=== PATIENT | male | born 1950 | race Caucasian/White ===

== ENCOUNTER 2018-01-18 09:07 | Emergency (ER) | payer MEDICARE ==
[2018-01-18 09:49] LABS: Hemoglobin 14.6 g/dL (14.0-18.0); Mean Corpuscular HGB CONC 34.4 g/dL (32.0-36.0); Mean Corpuscular Hemoglobin 31.8 pg (27.0-31.0); Mean Corpuscular Volume 92.5 fL (78.0-98.0); Mean Platelet Volume 7.4 fL (7.4-10.4); Platelet Count 106 thou/uL (130-400); RBC Distribution Width 11.3 % (11.5-14.5); Red Blood Cell (RBC) Count 4.58 mill/uL (4.70-6.10); White Blood Cell (WBC) Count 7.9 thou/uL (4.8-10.8)
[2018-01-18 09:56] LABS: Anion Gap 15 mmol/L (10-20); BUN (Urea Nitrogen) 19 mg/dL (8.4-25.7); Calc. Creatinine Clearance 0 mL/min (70-130); Calcium 9.6 mg/dL (7.8-10.44); Carbon Dioxide 27 mmol/L (23-31); Chloride 93 mmol/L (98-107); Estimated GFR-MDRD 46; Glucose 541 mg/dL (80-115); Potassium 4.5 mmol/L (3.5-5.1); Sodium 130 mmol/L (136-145)
[2018-01-18 10:00] LABS: #Eosinphils 0.1 thou/uL (0.0-0.7); #Lymphocytes 0.9 thou/uL (1.20-3.40); #Monocytes 0.7 thou/uL (0.11-0.59); #Neutrophils 6.2 thou/uL (1.40-6.50); %Basophils 0.6 % (0.0-1.0); %Eosinophils 1.4 % (0.0-10.0); %Monocytes 8.6 % (0.0-10.0); %Neutrophils 78.3 % (42.0-75.0); PLT Morphology Comment Appears Decreased; RBC Morphology Normal
[2018-01-18 10:03] LABS: MDiff Complete? YES
[2018-01-18] MEDS ORDERED: Insulin Regular 300 UNITS/3 ML VIAL ONE (10:09)
[2018-01-18] MEDS ORDERED: Lidocaine 1% 20 ML MDV ONE (10:31)
[2018-01-18] MEDS ORDERED: Clindamycin 300 MG/2 ML VIAL ONE (10:44)
--- NOTE | 2018-01-18 11:45 | ULT ---
RIGHT LOWER EXTREMITY VENOUS ULTRASOUND: HISTORY: Right calf redness and pain for 1 week. Palpable abnormality in the inguinal region. TECHNIQUE: Multiplanar, butler scale, and color Doppler images were obtained in a right lower extremity venous ult rasound. Spectral analysis of the Doppler waveforms was performed. FINDINGS: The right common femoral vein, profunda femoral vein, superficial femoral vein, and popliteal vein ar e normal in appearance without visible thrombus. These vessels demonstrate normal compression, flow, and augmentation. The posterior tibial vein and greater saphenous vein are also patent without evid ence of thrombus. There is a prominent right inguinal lymph node. At the area of concern along the calf, there is a sm all fluid collection measuring approximately 2.3 cm in size. IMPRESSION: 1. No evidence of deep vein thrombosis. 2. Small fluid collection in the calf region. POS: [facility]
== END 2018-01-18 11:06 | disposition home or self-care (01) ==
LOC: SCSER 09:07
DX: L02.415 Cutaneous abscess of right lower limb (principal); L03.115 Cellulitis of right lower limb; I25.10 Atherosclerotic heart disease of native coronary artery without angina pectoris; I25.2 Old myocardial infarction; E11.9 Type 2 diabetes mellitus without complications; E78.5 Hyperlipidemia, unspecified; I10 Essential (primary) hypertension; Z87.891 Personal history of nicotine dependence; Z79.4 Long term (current) use of insulin
CPT/HCPCS: 10060; 36415; 80048; 85025; 87070; 87077; 87186; 87205; 96372; J1815; J2001; J3490

== ENCOUNTER 2018-01-20 06:39 | Emergency (ER) | payer MEDICARE | END 2018-01-20 07:31 | disposition home or self-care (01) | LOC: SCSER 06:39 | DX: Z48.817 Encounter for surgical aftercare following surgery on the skin and subcutaneous tissue (principal); I25.2 Old myocardial infarction; I25.10 Atherosclerotic heart disease of native coronary artery without angina pectoris; E78.5 Hyperlipidemia, unspecified; I10 Essential (primary) hypertension; Z87.891 Personal history of nicotine dependence | CPT/HCPCS: 99282 ==

== ENCOUNTER 2018-07-12 01:32 | Emergency (ER) | payer MEDICARE | END 2018-07-12 02:45 | disposition home or self-care (01) | LOC: SCSER 01:32 | DX: L02.415 Cutaneous abscess of right lower limb (principal); L03.115 Cellulitis of right lower limb; I25.2 Old myocardial infarction; E11.9 Type 2 diabetes mellitus without complications; E78.5 Hyperlipidemia, unspecified; I10 Essential (primary) hypertension; Z87.891 Personal history of nicotine dependence; Z79.4 Long term (current) use of insulin; Z79.82 Long term (current) use of aspirin; Z79.899 Other long term (current) drug therapy | CPT/HCPCS: 10061 ==

== ENCOUNTER 2025-04-11 23:44 | Inpatient (IN) | payer MEDICARE, OTHER ==
[2025-04-12 00:25] LABS: ALT (SGPT) Less than 7 U/L (Less than 45); AST (SGOT) 16 U/L (11-34); Albumin 1.9 g/dL (3.1-4.5); Alkaline Phosphatase 55 U/L (40-110); Anion Gap 16 mmol/L (10-20); BUN (Urea Nitrogen) 36 mg/dL (8.4-25.7); Bilirubin, Total 1.6 mg/dL (0.3-1.2); Calc. Creatinine Clearance 0 mL/min (70-130); Calcium 8.7 mg/dL (7.8-10.44); Carbon Dioxide 20 mmol/L (23-31); Chloride 102 mmol/L (98-107); Globulin 2.9 g/dL (2.4-3.5); Glucose 126 mg/dL (83-110); Potassium 3.7 mmol/L (3.5-5.1); Sodium 134 mmol/L (136-145)
[2025-04-12 00:52] LABS: Hematocrit 21.3 % (42.0-52.0); Hemoglobin 7.1 g/dL (14.0-18.0); Mean Corpuscular Hemoglobin 31.6 pg (27.0-31.0); Mean Corpuscular Volume 94.7 fL (78.0-98.0); Platelet Count 25 10x3/uL (130-400); Red Blood Cell (RBC) Count 2.25 mill/uL (4.70-6.10); White Blood Cell (WBC) Count 0.89 10x3/uL (4.8-10.8)
[2025-04-12] MEDS ORDERED: Hydrocortisone Sod Succ/PF 100 mg/2 ml Vial ONE (00:55)
[2025-04-12 01:37] LABS: Bacteria/HPF 4+ HPF (None Seen); CAUTI Indications for Culture Alt mental st,lethar; Glucose, Urine (Dipstick) Greater than 1000 mg/dL (Negative); Leukocyte 500 Leu/uL (Negative); Protein, Urine (Dipstick) 50 mg/dL (Neg-Trace); RBC/HPF 21-50 HPF (0-3); Specific Gravity, Urine 1.017 (1.002-1.036); WBC/HPF Greater than 50 HPF (0-3)
[2025-04-12] MEDS ORDERED: NOREPINEPHRINE 8 MG/250 ML-D5W 250 ML IVPB PRN (01:38)
[2025-04-12] MEDS ORDERED: Acetaminophen 325 MG (10.15 ML) UDCUP PO PRN (01:38)
[2025-04-12 01:52] LABS: Urine Culture Reflex Yes Yes
[2025-04-12] MEDS ORDERED: Vasopressin In 0.9 % NaCl 40 UNIT in Premix 1 BAG IV SCH (02:00)
[2025-04-12 02:17] LABS: Anisocytosis SLIGHT = 6-15 cells HPF (0-5); Macrocytosis SLIGHT = 6-15 cells HPF (0-5); Nucleated RBC (Manual Ct) 8 % (0); Platelet Adequacy Comment Significant Decrease; Polychromasia SLIGHT = 2-3 cells HPF (0-2); Smudge Cells 8.7 %
[2025-04-12] MEDS ORDERED: Ondansetron PF 4 MG/2 ML Vial IVP PRN (02:47)
[2025-04-12] MEDS ORDERED: Calcium Carbonate 500 MG ChewTAB PO PRN (02:47)
[2025-04-12] MEDS ORDERED: Electrolyte Replacement Protocol 1 EACH FS SCH (03:00)
[2025-04-12] MEDS ORDERED: PHOS-NAK 1 PKT PACK PO PRN (03:15)
[2025-04-12] MEDS ORDERED: Glucagon 1 MG/ML KIT IM PRN (03:39)
[2025-04-12] MEDS ORDERED: Dextrose 50% Abboject 50 ML SYRINGE SLOW IVP PRN (03:39)
[2025-04-12] MEDS: Hydrocortisone Sod Succ/PF 100 mg/2 ml Vial IVP SCH (05:41)
[2025-04-12] MEDS: Vancomycin (BATCH) 2.5 GM in Premix 1 BAG IVPB SCH (06:19)
[2025-04-12] MEDS: Norepinephrine 8 MG/0.9% NS 250 ML IVPB SCH (06:49)
[2025-04-12 07:21] LABS: ALT (SGPT) 8 U/L (Less than 45); AST (SGOT) 15 U/L (11-34); Albumin 2.1 g/dL (3.1-4.5); Alkaline Phosphatase 62 U/L (40-110); Anion Gap 22 mmol/L (10-20); BUN (Urea Nitrogen) 36 mg/dL (8.4-25.7); Bilirubin, Total 1.7 mg/dL (0.3-1.2); Calc. Creatinine Clearance 63 mL/min (70-130); Calcium 8.8 mg/dL (7.8-10.44); Carbon Dioxide 13 mmol/L (23-31); Chloride 103 mmol/L (98-107); Globulin 3.2 g/dL (2.4-3.5); Glucose 201 mg/dL (83-110); Potassium 4.1 mmol/L (3.5-5.1); Sodium 134 mmol/L (136-145)
[2025-04-12 07:33] LABS: Hematocrit 21.8 % (42.0-52.0); Hemoglobin 6.9 g/dL (14.0-18.0); Mean Corpuscular Hemoglobin 31.7 pg (27.0-31.0); Mean Corpuscular Volume 100.0 fL (78.0-98.0); Platelet Count 24 10x3/uL (130-400); Red Blood Cell (RBC) Count 2.18 mill/uL (4.70-6.10); White Blood Cell (WBC) Count 0.61 10x3/uL (4.8-10.8)
[2025-04-12 08:49] LABS: Burr Cells MODERATE= 6-15 cells HPF (0-1); Macrocytosis SLIGHT = 6-15 cells HPF (0-5); Ovalocytes SLIGHT = 2-5 cells HPF (0-1); Platelet Adequacy Comment Significant Decrease; Poikilocytosis SLIGHT = 6-15 cells HPF (0-5); Polychromasia SLIGHT = 2-3 cells HPF (0-2)
[2025-04-12] MEDS ORDERED: Vancomycin 1 GM in Premix 1 BAG IVPB SCH (09:00)
[2025-04-12] MEDS: Carvedilol 3.125 MG TAB PO SCH (09:11)
[2025-04-12] MEDS: Pantoprazole 40 MG DR.TAB PO SCH (09:27)
[2025-04-12] MEDS: Folic Acid 1 MG TAB PO SCH (09:27)
[2025-04-12] MEDS: Benzonatate 100 MG CAP PO SCH (09:27)
[2025-04-12] MEDS: TICAGRELOR 90 MG TABLET PO SCH (09:27)
[2025-04-12] MEDS: Mupirocin 1 GM TUBE NASAL DECOLONIZATION NASAL SCH (09:28)
[2025-04-12 10:48] LABS: Platelet Count 22 10x3/uL (130-400)
[2025-04-12 10:49] LABS: Fibrinogen 837 mg/dL (253-463)
[2025-04-12 10:50] LABS: INR-International Normal Ratio 2.2; Prothrombin Time 24.9 sec (12.0-14.7)
[2025-04-12 10:51] LABS: D-Dimer Test 0.60 mcg/mL (0.27-0.43); PTT 58.6 sec (22.9-36.1)
[2025-04-12] MEDS: Furosemide 20 MG (2 mL) VIAL IVP SCH (11:02)
[2025-04-12 20:04] LABS: Influenza A by NAA Not Detected (NotDetected); Influenza B by NAA Not Detected (NotDetected); SARS-CoV-2 NAA Rapid Test Not Detected (NotDetected)
[2025-04-12] MEDS: Aspirin 81 mg Enteric Coated Tablet PO SCH (21:07)
[2025-04-12] MEDS: Sodium Bicarbonate Tab 325 MG TAB PO SCH (21:08)
[2025-04-12] MEDS: Rosuvastatin 20 MG TAB PO SCH (21:08)
[2025-04-12] MEDS: Vancomycin 1.25 GM / NS 250 ML VIAL-2-BAG IVPB SCH (22:27)
[2025-04-12] MEDS ORDERED: Vancomycin 1.25 GM / NS 250 ML VIAL-2-BAG IVPB SCH (23:00)
[2025-04-13 05:03] LABS: Vancomycin, Random 23.9 ug/mL (See Comment)
[2025-04-13 05:05] LABS: Anion Gap 25 mmol/L (10-20); BUN (Urea Nitrogen) 47 mg/dL (8.4-25.7); Calc. Creatinine Clearance 55 mL/min (70-130); Calcium 8.3 mg/dL (7.8-10.44); Carbon Dioxide 14 mmol/L (23-31); Chloride 102 mmol/L (98-107); Glucose 275 mg/dL (83-110); Iron 61 ug/dL (65-175); Iron Binding Capacity, Total 93 mcg/dL (261-462); Potassium 4.3 mmol/L (3.5-5.1); Sodium 137 mmol/L (136-145)
[2025-04-13 05:07] LABS: Hematocrit 24.4 % (42.0-52.0); Hemoglobin 7.8 g/dL (14.0-18.0); Mean Corpuscular Hemoglobin 31.2 pg (27.0-31.0); Mean Corpuscular Volume 97.6 fL (78.0-98.0); Platelet Count 43 10x3/uL (130-400); Red Blood Cell (RBC) Count 2.50 mill/uL (4.70-6.10); White Blood Cell (WBC) Count 2.50 10x3/uL (4.8-10.8)
[2025-04-13 05:34] LABS: Burr Cells SLIGHT = 2-5 cells HPF (0-1); Nucleated RBC (Manual Ct) 7 % (0); Platelet Adequacy Comment Platelets Decreased; Poikilocytosis MODERATE=16-30 cells HPF (0-5); Polychromasia SLIGHT = 2-3 cells HPF (0-2); Smudge Cells 6.5 %; Toxic Granulation SLIGHT
[2025-04-13] MEDS ORDERED: Glucagon 1 MG/ML KIT IM PRN (11:31)
[2025-04-13] MEDS: Albumin 5% 12.5 GM (250 mL) BOT IVPB SCH (11:50)
[2025-04-13] MEDS: Vancomycin 1 GM in Premix 1 BAG IVPB SCH (22:02)
[2025-04-14 04:54] LABS: Hematocrit 25.4 % (42.0-52.0); Hemoglobin 8.4 g/dL (14.0-18.0); Mean Corpuscular Hemoglobin 31.6 pg (27.0-31.0); Mean Corpuscular Volume 95.5 fL (78.0-98.0); Platelet Count 79 10x3/uL (130-400); Red Blood Cell (RBC) Count 2.66 mill/uL (4.70-6.10); White Blood Cell (WBC) Count 7.13 10x3/uL (4.8-10.8)
[2025-04-14 05:42] LABS: Anion Gap 21 mmol/L (10-20); BUN (Urea Nitrogen) 53 mg/dL (8.4-25.7); Calc. Creatinine Clearance 50 mL/min (70-130); Calcium 8.2 mg/dL (7.8-10.44); Carbon Dioxide 18 mmol/L (23-31); Chloride 102 mmol/L (98-107); Glucose 295 mg/dL (83-110); Potassium 4.3 mmol/L (3.5-5.1); Sodium 137 mmol/L (136-145)
[2025-04-14 06:03] LABS: Anisocytosis MODERATE=16-30 cells HPF (0-5); Burr Cells SLIGHT = 2-5 cells HPF (0-1); Macrocytosis SLIGHT = 6-15 cells HPF (0-5); Nucleated RBC (Manual Ct) 4 % (0); Platelet Adequacy Comment Platelets Decreased; Poikilocytosis MODERATE=16-30 cells HPF (0-5); Polychromasia SLIGHT = 2-3 cells HPF (0-2); Smudge Cells 6.0 %
[2025-04-14] MEDS: Furosemide 40 MG (4 mL) VIAL SLOW IVP SCH (20:47)
[2025-04-14] MEDS: Melatonin 3 MG TAB PO SCH (21:53)
[2025-04-15 06:17] LABS: Hematocrit 30.9 % (42.0-52.0); Hemoglobin 9.8 g/dL (14.0-18.0); Mean Corpuscular Hemoglobin 30.5 pg (27.0-31.0); Mean Corpuscular Volume 96.3 fL (78.0-98.0); Platelet Count 120 10x3/uL (130-400); Red Blood Cell (RBC) Count 3.21 mill/uL (4.70-6.10); White Blood Cell (WBC) Count 11.42 10x3/uL (4.8-10.8)
[2025-04-15 06:47] LABS: Anion Gap 24 mmol/L (10-20); BUN (Urea Nitrogen) 51 mg/dL (8.4-25.7); Calc. Creatinine Clearance 52 mL/min (70-130); Calcium 7.9 mg/dL (7.8-10.44); Carbon Dioxide 16 mmol/L (23-31); Chloride 104 mmol/L (98-107); Glucose 322 mg/dL (83-110); Potassium 4.0 mmol/L (3.5-5.1); Sodium 140 mmol/L (136-145)
[2025-04-15 06:49] LABS: Burr Cells SLIGHT = 2-5 cells HPF (0-1); Platelet Adequacy Comment Platelets Decreased; Polychromasia SLIGHT = 2-3 cells HPF (0-2); Smudge Cells 3.8 %; Toxic Granulation SLIGHT
[2025-04-15] MEDS ORDERED: Heparin 10,000 UNITS/ 10 ML VIAL ONE (06:53)
[2025-04-15] MEDS ORDERED: Lidocaine 1% PF 5 ML VIAL ONE (07:09)
[2025-04-15] MEDS ORDERED: Ondansetron PF 4 MG/2 ML Vial ONE (07:09)
[2025-04-15] MEDS ORDERED: fentaNYL PF 100 MCG/2 ML SYRINGE ONE (07:09)
[2025-04-15] MEDS ORDERED: PHENYLEPHRINE-NS 100 MCG/ML 10 ML SYRINGE ONE ×3 (07:47→08:12)
[2025-04-15] MEDS ORDERED: PROPOFOL 200 MG/20 ML VIAL ONE (07:50)
[2025-04-15] MEDS: QUEtiapine 25 MG TAB PO SCH (19:57)
[2025-04-15 22:55] LABS: Anion Gap 16 mmol/L (10-20); BUN (Urea Nitrogen) 50 mg/dL (8.4-25.7); Calc. Creatinine Clearance 52 mL/min (70-130); Calcium 7.7 mg/dL (7.8-10.44); Carbon Dioxide 23 mmol/L (23-31); Chloride 106 mmol/L (98-107); Glucose 312 mg/dL (83-110); Magnesium 1.9 mg/dL (1.6-2.6); Potassium 3.8 mmol/L (3.5-5.1); Sodium 141 mmol/L (136-145)
[2025-04-15] MEDS: Magnesium 2 GM/50 ML(in water) 2 GM in Premix 1 BAG IVPB PRN (23:16)
[2025-04-16 04:14] LABS: Anion Gap 19 mmol/L (10-20); BUN (Urea Nitrogen) 48 mg/dL (8.4-25.7); Calc. Creatinine Clearance 51 mL/min (70-130); Calcium 7.8 mg/dL (7.8-10.44); Carbon Dioxide 22 mmol/L (23-31); Chloride 107 mmol/L (98-107); Glucose 302 mg/dL (83-110); Potassium 3.6 mmol/L (3.5-5.1); Sodium 144 mmol/L (136-145)
[2025-04-16 04:15] LABS: CRP, High Sensitivity at Bryan 11.28 mg/dL (< or = 0.5); Magnesium 2.2 mg/dL (1.6-2.6)
[2025-04-16 04:31] LABS: Hematocrit 29.0 % (42.0-52.0); Hemoglobin 9.1 g/dL (14.0-18.0); Mean Corpuscular Hemoglobin 30.1 pg (27.0-31.0); Mean Corpuscular Volume 96.0 fL (78.0-98.0); Platelet Count 127 10x3/uL (130-400); Red Blood Cell (RBC) Count 3.02 mill/uL (4.70-6.10); White Blood Cell (WBC) Count 12.93 10x3/uL (4.8-10.8)
[2025-04-16 06:12] LABS: Anisocytosis SLIGHT = 6-15 cells HPF (0-5); Macrocytosis SLIGHT = 6-15 cells HPF (0-5); Nucleated RBC (Manual Ct) 1 % (0); Platelet Adequacy Comment Platelets Decreased; Poikilocytosis MODERATE=16-30 cells HPF (0-5); Polychromasia SLIGHT = 2-3 cells HPF (0-2); Smudge Cells 3.6 %; Toxic Granulation SLIGHT
[2025-04-16] MEDS: Metoprolol Tartrate 5 MG (5 mL) VIAL IVP SCH (13:34)
[2025-04-16] MEDS: Hydrocortisone Sod Succ/PF 100 mg/2 ml Vial IVP SCH (14:53)
[2025-04-16] MEDS ORDERED: Digoxin 0.5 MG/2 ML AMP SLOW IVP SCH (19:45)
[2025-04-16] MEDS: Melatonin 3 MG TAB PO PRN (21:12)
[2025-04-16] MEDS: Digoxin 0.5 MG/2 ML AMP SLOW IVP SCH (23:53)
[2025-04-17] MEDS ORDERED: Norepinephrine 8 MG/0.9% NS 250 ML IVPB SCH (01:15)
[2025-04-17 01:46] LABS: Anion Gap 15 mmol/L (10-20); BUN (Urea Nitrogen) 53 mg/dL (8.4-25.7); Calc. Creatinine Clearance 54 mL/min (70-130); Calcium 7.8 mg/dL (7.8-10.44); Carbon Dioxide 24 mmol/L (23-31); Chloride 109 mmol/L (98-107); Glucose 248 mg/dL (83-110); Magnesium 2.1 mg/dL (1.6-2.6); Potassium 3.1 mmol/L (3.5-5.1); Sodium 145 mmol/L (136-145)
[2025-04-17 04:57] LABS: Hematocrit 27.9 % (42.0-52.0); Hemoglobin 8.8 g/dL (14.0-18.0); Mean Corpuscular Hemoglobin 30.6 pg (27.0-31.0); Mean Corpuscular Volume 96.9 fL (78.0-98.0); Platelet Count 132 10x3/uL (130-400); Red Blood Cell (RBC) Count 2.88 mill/uL (4.70-6.10); White Blood Cell (WBC) Count 12.26 10x3/uL (4.8-10.8)
[2025-04-17 05:25] LABS: Anion Gap 13 mmol/L (10-20); BUN (Urea Nitrogen) 51 mg/dL (8.4-25.7); Calc. Creatinine Clearance 56 mL/min (70-130); Calcium 7.7 mg/dL (7.8-10.44); Carbon Dioxide 26 mmol/L (23-31); Chloride 110 mmol/L (98-107); Glucose 252 mg/dL (83-110); Potassium 3.1 mmol/L (3.5-5.1); Sodium 146 mmol/L (136-145)
[2025-04-17 05:34] LABS: Platelet Adequacy Comment Platelets Normal; Polychromasia SLIGHT = 2-3 cells HPF (0-2); Smudge Cells 1.0 %
[2025-04-17] MEDS: Potassium Chloride 20 MEQ in Premix 1 BAG IVPB PRN (06:04)
[2025-04-17 06:47] VITALS: BMI 39.6
[2025-04-17] MEDS: Enoxaparin 40 MG (0.4 mL) SYRINGE SC SCH (09:24)
[2025-04-17] MEDS: Metoprolol Succinate XL 25 MG ER.TAB PO SCH (09:25)
[2025-04-17] MEDS: Metoprolol Tartrate 5 MG (5 mL) VIAL IVP SCH (11:54)
[2025-04-17] MEDS: Acetaminophen 325 MG TAB PO PRN (11:55)
[2025-04-17] MEDS: Apixaban 5 MG TAB PO SCH ×2 (11:55→20:52)
[2025-04-17] MEDS: Hydrocortisone Sod Succ/PF 100 mg/2 ml Vial IVP SCH (12:07)
[2025-04-17 16:05] LABS: Potassium 3.4 mmol/L (3.5-5.1)
[2025-04-18 09:24] LABS: Anion Gap 18 mmol/L (10-20); BUN (Urea Nitrogen) 50 mg/dL (8.4-25.7); CRP, High Sensitivity at Bryan 5.27 mg/dL (< or = 0.5); Calc. Creatinine Clearance 57 mL/min (70-130); Calcium 7.9 mg/dL (7.8-10.44); Carbon Dioxide 20 mmol/L (23-31); Chloride 104 mmol/L (98-107); Glucose 253 mg/dL (83-110); Hematocrit 29.8 % (42.0-52.0); Hemoglobin 9.4 g/dL (14.0-18.0); Magnesium 1.9 mg/dL (1.6-2.6); Mean Corpuscular Hemoglobin 30.5 pg (27.0-31.0); Mean Corpuscular Volume 96.8 fL (78.0-98.0); Platelet Count 137 10x3/uL (130-400); Potassium 3.7 mmol/L (3.5-5.1); Red Blood Cell (RBC) Count 3.08 mill/uL (4.70-6.10); Sodium 138 mmol/L (136-145); White Blood Cell (WBC) Count 14.96 10x3/uL (4.8-10.8)
[2025-04-18 09:45] LABS: Anisocytosis SLIGHT = 6-15 cells HPF (0-5); Macrocytosis SLIGHT = 6-15 cells HPF (0-5); Nucleated RBC (Manual Ct) 1 % (0); Platelet Adequacy Comment Platelets Normal; Poikilocytosis MODERATE=16-30 cells HPF (0-5); Polychromasia SLIGHT = 2-3 cells HPF (0-2); Smudge Cells 5.8 %
[2025-04-18] MEDS ORDERED: PHOS-NAK 1 PKT PACK PO PRN (16:00)
[2025-04-18] MEDS ORDERED: Potassium Chloride 20 MEQ in Premix 1 BAG IVPB PRN (16:00)
[2025-04-19 03:14] LABS: Hematocrit 29.7 % (42.0-52.0); Hemoglobin 9.4 g/dL (14.0-18.0); Mean Corpuscular Hemoglobin 30.2 pg (27.0-31.0); Mean Corpuscular Volume 95.5 fL (78.0-98.0); Platelet Count 179 10x3/uL (130-400); Red Blood Cell (RBC) Count 3.11 mill/uL (4.70-6.10); White Blood Cell (WBC) Count 15.30 10x3/uL (4.8-10.8)
[2025-04-19 03:41] LABS: Anisocytosis SLIGHT = 6-15 cells HPF (0-5); Nucleated RBC (Manual Ct) 1 % (0); Platelet Adequacy Comment Platelets Normal; Polychromasia SLIGHT = 2-3 cells HPF (0-2)
[2025-04-19 04:18] LABS: Anion Gap 19 mmol/L (10-20); BUN (Urea Nitrogen) 49 mg/dL (8.4-25.7); Calc. Creatinine Clearance 57 mL/min (70-130); Calcium 8.0 mg/dL (7.8-10.44); Carbon Dioxide 20 mmol/L (23-31); Chloride 101 mmol/L (98-107); Glucose 219 mg/dL (83-110); Potassium 3.5 mmol/L (3.5-5.1); Sodium 136 mmol/L (136-145)
[2025-04-19 06:02] LABS: Magnesium 1.8 mg/dL (1.6-2.6)
[2025-04-19] MEDS: Amiodarone 150 MG, Admixture Fee 1 EACH in Dextrose 5% in Water 100 ML IVPB SCH (09:17)
[2025-04-19] MEDS: Magnesium 2 GM/50 ML(in water) 2 GM in Premix 1 BAG IVPB SCH (09:28)
[2025-04-20 05:43] LABS: Hematocrit 26.2 % (42.0-52.0); Hemoglobin 8.1 g/dL (14.0-18.0); Mean Corpuscular Hemoglobin 30.3 pg (27.0-31.0); Mean Corpuscular Volume 98.1 fL (78.0-98.0); Platelet Count 124 10x3/uL (130-400); Red Blood Cell (RBC) Count 2.67 mill/uL (4.70-6.10); White Blood Cell (WBC) Count 12.77 10x3/uL (4.8-10.8)
[2025-04-20 05:52] LABS: Anion Gap 15 mmol/L (10-20); BUN (Urea Nitrogen) 39 mg/dL (8.4-25.7); Calc. Creatinine Clearance 76 mL/min (70-130); Calcium 7.8 mg/dL (7.8-10.44); Carbon Dioxide 21 mmol/L (23-31); Chloride 105 mmol/L (98-107); Glucose 246 mg/dL (83-110); Magnesium 2.1 mg/dL (1.6-2.6); Potassium 3.5 mmol/L (3.5-5.1); Sodium 137 mmol/L (136-145)
[2025-04-20 06:14] LABS: Nucleated RBC (Manual Ct) 1 % (0); Platelet Adequacy Comment Platelets Decreased; Smudge Cells 4.9 %
[2025-04-20] MEDS: Insulin Glargine 30 UNITS/0.3 ML VIAL SC SCH ×2 (09:27→23:44)
[2025-04-20] MEDS: Hydrocortisone Sod Succ/PF 100 mg/2 ml Vial IVP SCH (09:37)
[2025-04-20] MEDS: Amiodarone 200 MG TAB PO SCH (22:35)
[2025-04-20] MEDS: Metoprolol Tartrate 5 MG (5 mL) VIAL IVP SCH (22:43)
[2025-04-21 08:10] LABS: Anion Gap 14 mmol/L (10-20); BUN (Urea Nitrogen) 31 mg/dL (8.4-25.7); Calc. Creatinine Clearance 84 mL/min (70-130); Calcium 7.7 mg/dL (7.8-10.44); Carbon Dioxide 24 mmol/L (23-31); Chloride 104 mmol/L (98-107); Glucose 247 mg/dL (83-110); Magnesium 1.8 mg/dL (1.6-2.6); Potassium 3.5 mmol/L (3.5-5.1); Sodium 138 mmol/L (136-145)
[2025-04-21 08:12] LABS: Hematocrit 27.5 % (42.0-52.0); Hemoglobin 8.8 g/dL (14.0-18.0); Mean Corpuscular Hemoglobin 31.3 pg (27.0-31.0); Mean Corpuscular Volume 97.9 fL (78.0-98.0); Platelet Count 147 10x3/uL (130-400); Red Blood Cell (RBC) Count 2.81 mill/uL (4.70-6.10); White Blood Cell (WBC) Count 12.88 10x3/uL (4.8-10.8)
[2025-04-21 09:46] LABS: Anisocytosis SLIGHT = 6-15 cells HPF (0-5); Giant Platelets 2.8 % (0-5); Macrocytosis SLIGHT = 6-15 cells HPF (0-5); Platelet Adequacy Comment Platelets Normal; Polychromasia SLIGHT = 2-3 cells HPF (0-2); Smudge Cells 4.7 %; Toxic Granulation SLIGHT
[2025-04-22 04:59] LABS: Anion Gap 17 mmol/L (10-20); BUN (Urea Nitrogen) 24 mg/dL (8.4-25.7); Calc. Creatinine Clearance 104 mL/min (70-130); Calcium 7.9 mg/dL (7.8-10.44); Carbon Dioxide 22 mmol/L (23-31); Chloride 107 mmol/L (98-107); Glucose 202 mg/dL (83-110); Magnesium 1.8 mg/dL (1.6-2.6); Potassium 3.6 mmol/L (3.5-5.1); Sodium 142 mmol/L (136-145)
[2025-04-22] MEDS: TICAGRELOR 90 MG TABLET PO SCH (21:39)
[2025-04-23 04:48] LABS: #Eosinophils 0.03 10x3/uL (0.0-0.7); %Eosinophils 0.2 % (0.0-10.0); %Neutrophils 76.7 % (42.0-75.0); Mean Corpuscular Volume 100.3 fL (78.0-98.0)
[2025-04-23 05:09] LABS: Anion Gap 9 mmol/L (10-20); BUN (Urea Nitrogen) 26 mg/dL (8.4-25.7); Calc. Creatinine Clearance 107 mL/min (70-130); Calcium 8.1 mg/dL (7.8-10.44); Carbon Dioxide 24 mmol/L (23-31); Chloride 107 mmol/L (98-107); Glucose 143 mg/dL (83-110); Magnesium 1.7 mg/dL (1.6-2.6); Potassium 3.3 mmol/L (3.5-5.1); Sodium 137 mmol/L (136-145)
[2025-04-23 05:13] LABS: #Basophils 0.04 10x3/uL (0.0-0.2); #Monocytes 1.36 10x3/uL (0.11-0.59); #Neutrophils 11.35 10x3/uL (1.40-6.50); %Basophils 0.3 % (0.0-1.0); %Lymphocytes 9.1 % (21.0-51.0); %Monocytes 9.2 % (0.0-10.0); Hematocrit 29.8 % (42.0-52.0); Hemoglobin 9.0 g/dL (14.0-18.0); Mean Corpuscular Hemoglobin 30.3 pg (27.0-31.0); Platelet Count 167 10x3/uL (130-400); Red Blood Cell (RBC) Count 2.97 mill/uL (4.70-6.10); White Blood Cell (WBC) Count 14.80 10x3/uL (4.8-10.8)
[2025-04-23] MEDS: Metoprolol Tartrate 5 MG (5 mL) VIAL IVP SCH (05:35)
[2025-04-23] MEDS: Magnesium Sulfate In Water 4 GM in Premix 1 BAG IVPB PRN (05:36)
[2025-04-23] MEDS: TICAGRELOR 90 MG TABLET PO SCH (08:22)
[2025-04-23] MEDS ORDERED: PROPOFOL 20 ML ONE (10:49)
[2025-04-23] MEDS ORDERED: Lidocaine 1% PF 5 ML VIAL ONE (10:49)
[2025-04-23] MEDS ORDERED: Bupivacaine 0.25% HCL 30 ML VIAL ONE (11:17)
[2025-04-23 21:13] LABS: Magnesium 2.3 mg/dL (1.6-2.6); Potassium 4.8 mmol/L (3.5-5.1)
[2025-04-24 05:22] LABS: Anion Gap 16 mmol/L (10-20); BUN (Urea Nitrogen) 25 mg/dL (8.4-25.7); Calc. Creatinine Clearance 104 mL/min (70-130); Calcium 8.0 mg/dL (7.8-10.44); Carbon Dioxide 24 mmol/L (23-31); Chloride 105 mmol/L (98-107); Glucose 190 mg/dL (83-110); Magnesium 2.0 mg/dL (1.6-2.6); Potassium 3.9 mmol/L (3.5-5.1); Sodium 141 mmol/L (136-145)
[2025-04-25 05:38] LABS: #Basophils 0.05 10x3/uL (0.0-0.2); #Eosinophils 0.03 10x3/uL (0.0-0.7); #Monocytes 1.28 10x3/uL (0.11-0.59); #Neutrophils 11.29 10x3/uL (1.40-6.50); %Basophils 0.3 % (0.0-1.0); %Eosinophils 0.2 % (0.0-10.0); %Lymphocytes 12.2 % (21.0-51.0); %Monocytes 8.6 % (0.0-10.0); %Neutrophils 76.3 % (42.0-75.0); Hematocrit 22.1 % (42.0-52.0); Hemoglobin 6.8 g/dL (14.0-18.0); Mean Corpuscular Hemoglobin 30.4 pg (27.0-31.0); Mean Corpuscular Volume 98.7 fL (78.0-98.0); Platelet Count 166 10x3/uL (130-400); Red Blood Cell (RBC) Count 2.24 mill/uL (4.70-6.10); White Blood Cell (WBC) Count 14.80 10x3/uL (4.8-10.8)
[2025-04-25 05:57] LABS: Anion Gap 8 mmol/L (10-20); BUN (Urea Nitrogen) 20 mg/dL (8.4-25.7); Calc. Creatinine Clearance 113 mL/min (70-130); Calcium 7.6 mg/dL (7.8-10.44); Carbon Dioxide 24 mmol/L (23-31); Chloride 105 mmol/L (98-107); Glucose 160 mg/dL (83-110); Magnesium 1.7 mg/dL (1.6-2.6); Potassium 3.3 mmol/L (3.5-5.1); Sodium 134 mmol/L (136-145)
[2025-04-25 11:31] LABS: Hematocrit 26.0 % (42.0-52.0); Hemoglobin 7.9 g/dL (14.0-18.0)
[2025-04-25 11:56] VITALS: BMI 40.6
[2025-04-25] MEDS: Pantoprazole 40 MG VIAL IVP SCH ×2 (12:35→21:56)
[2025-04-25 13:07] LABS: Potassium 3.6 mmol/L (3.5-5.1)
[2025-04-26 06:36] LABS: #Basophils 0.03 10x3/uL (0.0-0.2); #Eosinophils 0.03 10x3/uL (0.0-0.7); #Monocytes 1.25 10x3/uL (0.11-0.59); #Neutrophils 12.29 10x3/uL (1.40-6.50); %Basophils 0.2 % (0.0-1.0); %Eosinophils 0.2 % (0.0-10.0); %Lymphocytes 10.4 % (21.0-51.0); %Monocytes 8.1 % (0.0-10.0); %Neutrophils 79.8 % (42.0-75.0); Hematocrit 20.2 % (42.0-52.0); Hemoglobin 6.1 g/dL (14.0-18.0); Mean Corpuscular Hemoglobin 30.2 pg (27.0-31.0); Mean Corpuscular Volume 100.0 fL (78.0-98.0); Platelet Count 153 10x3/uL (130-400); Red Blood Cell (RBC) Count 2.02 mill/uL (4.70-6.10); White Blood Cell (WBC) Count 15.41 10x3/uL (4.8-10.8)
[2025-04-26 07:01] LABS: Anion Gap 14 mmol/L (10-20); BUN (Urea Nitrogen) 18 mg/dL (8.4-25.7); Calc. Creatinine Clearance 102 mL/min (70-130); Calcium 7.4 mg/dL (7.8-10.44); Carbon Dioxide 26 mmol/L (23-31); Chloride 105 mmol/L (98-107); Glucose 79 mg/dL (83-110); Magnesium 1.6 mg/dL (1.6-2.6); Potassium 3.3 mmol/L (3.5-5.1); Sodium 142 mmol/L (136-145)
[2025-04-26 14:34] LABS: Potassium 4.3 mmol/L (3.5-5.1)
[2025-04-26 21:32] LABS: Hematocrit 25.7 % (42.0-52.0); Hemoglobin 8.0 g/dL (14.0-18.0); Platelet Count 156 10x3/uL (130-400)
[2025-04-26] MEDS: TICAGRELOR 90 MG TABLET PO SCH (21:36)
[2025-04-27 11:51] LABS: #Basophils 0.06 10x3/uL (0.0-0.2); #Eosinophils 0.07 10x3/uL (0.0-0.7); #Monocytes 1.54 10x3/uL (0.11-0.59); #Neutrophils 16.78 10x3/uL (1.40-6.50); %Basophils 0.3 % (0.0-1.0); %Eosinophils 0.3 % (0.0-10.0); %Lymphocytes 7.3 % (21.0-51.0); %Monocytes 7.6 % (0.0-10.0); %Neutrophils 82.8 % (42.0-75.0); Hematocrit 23.7 % (42.0-52.0); Hemoglobin 7.2 g/dL (14.0-18.0); Mean Corpuscular Hemoglobin 30.6 pg (27.0-31.0); Mean Corpuscular Volume 100.9 fL (78.0-98.0); Platelet Count 149 10x3/uL (130-400); Red Blood Cell (RBC) Count 2.35 mill/uL (4.70-6.10); White Blood Cell (WBC) Count 20.27 10x3/uL (4.8-10.8)
[2025-04-27 12:04] LABS: Anion Gap 9 mmol/L (10-20); BUN (Urea Nitrogen) 15 mg/dL (8.4-25.7); Calc. Creatinine Clearance 111 mL/min (70-130); Calcium 7.6 mg/dL (7.8-10.44); Carbon Dioxide 23 mmol/L (23-31); Chloride 105 mmol/L (98-107); Glucose 120 mg/dL (83-110); Potassium 4.0 mmol/L (3.5-5.1); Sodium 133 mmol/L (136-145)
[2025-04-28 05:41] LABS: #Basophils 0.05 10x3/uL (0.0-0.2); #Eosinophils 0.03 10x3/uL (0.0-0.7); #Monocytes 1.18 10x3/uL (0.11-0.59); #Neutrophils 12.09 10x3/uL (1.40-6.50); %Basophils 0.3 % (0.0-1.0); %Eosinophils 0.2 % (0.0-10.0); %Lymphocytes 9.0 % (21.0-51.0); %Monocytes 7.9 % (0.0-10.0); %Neutrophils 81.1 % (42.0-75.0); Hematocrit 22.8 % (42.0-52.0); Hemoglobin 7.4 g/dL (14.0-18.0); Mean Corpuscular Hemoglobin 31.1 pg (27.0-31.0); Mean Corpuscular Volume 95.8 fL (78.0-98.0); Platelet Count 160 10x3/uL (130-400); Red Blood Cell (RBC) Count 2.38 mill/uL (4.70-6.10); White Blood Cell (WBC) Count 14.92 10x3/uL (4.8-10.8)
[2025-04-28 06:06] LABS: ALT (SGPT) 8 U/L (Less than 45); AST (SGOT) 17 U/L (11-34); Albumin 1.3 g/dL (3.1-4.5); Alkaline Phosphatase 62 U/L (40-110); Anion Gap 10 mmol/L (10-20); BUN (Urea Nitrogen) 15 mg/dL (8.4-25.7); Bilirubin, Total 0.8 mg/dL (0.3-1.2); Calc. Creatinine Clearance 111 mL/min (70-130); Calcium 7.2 mg/dL (7.8-10.44); Carbon Dioxide 24 mmol/L (23-31); Chloride 105 mmol/L (98-107); Globulin 3.5 g/dL (2.4-3.5); Glucose 114 mg/dL (83-110); Magnesium 1.5 mg/dL (1.6-2.6); Potassium 4.0 mmol/L (3.5-5.1); Sodium 135 mmol/L (136-145)
[2025-04-29 05:26] LABS: #Basophils 0.05 10x3/uL (0.0-0.2); #Eosinophils 0.04 10x3/uL (0.0-0.7); #Monocytes 1.15 10x3/uL (0.11-0.59); #Neutrophils 10.40 10x3/uL (1.40-6.50); %Basophils 0.4 % (0.0-1.0); %Eosinophils 0.3 % (0.0-10.0); %Lymphocytes 10.3 % (21.0-51.0); %Monocytes 8.8 % (0.0-10.0); %Neutrophils 79.2 % (42.0-75.0); Hematocrit 24.0 % (42.0-52.0); Hemoglobin 7.2 g/dL (14.0-18.0); Mean Corpuscular Hemoglobin 30.0 pg (27.0-31.0); Mean Corpuscular Volume 100.0 fL (78.0-98.0); Platelet Count 154 10x3/uL (130-400); Red Blood Cell (RBC) Count 2.40 mill/uL (4.70-6.10); White Blood Cell (WBC) Count 13.12 10x3/uL (4.8-10.8)
[2025-04-29 05:58] LABS: ALT (SGPT) 10 U/L (Less than 45); AST (SGOT) 19 U/L (11-34); Albumin 1.4 g/dL (3.1-4.5); Alkaline Phosphatase 75 U/L (40-110); Anion Gap 13 mmol/L (10-20); BUN (Urea Nitrogen) 16 mg/dL (8.4-25.7); Bilirubin, Total 0.8 mg/dL (0.3-1.2); Calc. Creatinine Clearance 120 mL/min (70-130); Calcium 7.6 mg/dL (7.8-10.44); Carbon Dioxide 26 mmol/L (23-31); Chloride 102 mmol/L (98-107); Globulin 3.8 g/dL (2.4-3.5); Glucose 84 mg/dL (83-110); Magnesium 2.0 mg/dL (1.6-2.6); Potassium 3.5 mmol/L (3.5-5.1); Sodium 137 mmol/L (136-145)
[2025-04-29] MEDS: Fluconazole 100 MG TAB PO SCH (18:29)
[2025-04-29] MEDS: Dextrose 50% Abboject 50 ML SYRINGE SLOW IVP PRN (20:20)
[2025-04-30 05:03] LABS: #Basophils 0.04 10x3/uL (0.0-0.2); #Eosinophils 0.04 10x3/uL (0.0-0.7); #Monocytes 1.12 10x3/uL (0.11-0.59); #Neutrophils 8.78 10x3/uL (1.40-6.50); %Basophils 0.4 % (0.0-1.0); %Eosinophils 0.4 % (0.0-10.0); %Lymphocytes 10.8 % (21.0-51.0); %Monocytes 9.9 % (0.0-10.0); %Neutrophils 77.9 % (42.0-75.0); Hematocrit 22.6 % (42.0-52.0); Hemoglobin 7.1 g/dL (14.0-18.0); Mean Corpuscular Hemoglobin 30.6 pg (27.0-31.0); Mean Corpuscular Volume 97.4 fL (78.0-98.0); Platelet Count 161 10x3/uL (130-400); Red Blood Cell (RBC) Count 2.32 mill/uL (4.70-6.10); White Blood Cell (WBC) Count 11.27 10x3/uL (4.8-10.8)
[2025-04-30 05:31] LABS: Anion Gap 10 mmol/L (10-20); BUN (Urea Nitrogen) 17 mg/dL (8.4-25.7); Calc. Creatinine Clearance 120 mL/min (70-130); Calcium 7.5 mg/dL (7.8-10.44); Carbon Dioxide 27 mmol/L (23-31); Chloride 103 mmol/L (98-107); Glucose 75 mg/dL (83-110); Magnesium 1.8 mg/dL (1.6-2.6); Potassium 3.4 mmol/L (3.5-5.1); Sodium 137 mmol/L (136-145)
[2025-04-30 11:28] LABS: Potassium 3.9 mmol/L (3.5-5.1)
[2025-05-01 00:07] VITALS: BP 129/51; TEMP 97.6
== END 2025-05-01 00:53 | DRG 853 ==
LOC: ERS 23:44 → ERHOLD 04-12 01:48 → CCU 04-12 01:56 → 2NO 04-17 19:24
PROVIDERS: ADMIT Student in an Organized Health Care Education/Training Program; ATTEND Internal Medicine
PROC: 30233N1 Transfusion of Nonautologous Red Blood Cells into Peripheral Vein, Percutaneous Approach (ICD-10-PCS; 2025-04-12)
PROC: 3E033XZ Introduction of Vasopressor into Peripheral Vein, Percutaneous Approach (ICD-10-PCS; 2025-04-12)
PROC: 3E03329 Introduction of Other Anti-infective into Peripheral Vein, Percutaneous Approach (ICD-10-PCS; 2025-04-12)
PROC: 30233J1 Transfusion of Nonautologous Serum Albumin into Peripheral Vein, Percutaneous Approach (ICD-10-PCS; 2025-04-13)
PROC: 0Y6N0Z9 Detachment at Left Foot, Partial 1st Ray, Open Approach (ICD-10-PCS; principal; 2025-04-16)
PROC: 05H533Z Insertion of Infusion Device into Right Subclavian Vein, Percutaneous Approach (ICD-10-PCS; 2025-04-16)
PROC: B5161ZA Fluoroscopy of Right Subclavian Vein using Low Osmolar Contrast, Guidance (ICD-10-PCS; 2025-04-16)
PROC: 3E043XZ Introduction of Vasopressor into Central Vein, Percutaneous Approach (ICD-10-PCS; 2025-04-16)
PROC: 3E04329 Introduction of Other Anti-infective into Central Vein, Percutaneous Approach (ICD-10-PCS; 2025-04-16)
PROC: 0QTP0ZZ Resection of Left Metatarsal, Open Approach (ICD-10-PCS; 2025-04-24)
DX: A41.59 Other Gram-negative sepsis (principal); J18.9 Pneumonia, unspecified organism; R65.21 Severe sepsis with septic shock; N39.0 Urinary tract infection, site not specified; I13.0 Hypertensive heart and chronic kidney disease with heart failure and stage 1 through stage 4 chronic kidney disease, or unspecified chronic kidney disease; N18.4 Chronic kidney disease, stage 4 (severe); I50.22 Chronic systolic (congestive) heart failure; D61.818 Other pancytopenia; L97.819 Non-pressure chronic ulcer of other part of right lower leg with unspecified severity; L97.829 Non-pressure chronic ulcer of other part of left lower leg with unspecified severity; E87.20 Acidosis, unspecified; L03.116 Cellulitis of left lower limb; Z68.41 Body mass index [BMI] 40.0-44.9, adult; I96 Gangrene, not elsewhere classified; E11.52 Type 2 diabetes mellitus with diabetic peripheral angiopathy with gangrene; I47.20 Ventricular tachycardia, unspecified; Z51.5 Encounter for palliative care; Z66 Do not resuscitate; A41.01 Sepsis due to Methicillin susceptible Staphylococcus aureus; E78.5 Hyperlipidemia, unspecified; F10.90 Alcohol use, unspecified, uncomplicated; I95.1 Orthostatic hypotension; I48.91 Unspecified atrial fibrillation; I25.10 Atherosclerotic heart disease of native coronary artery without angina pectoris; E11.22 Type 2 diabetes mellitus with diabetic chronic kidney disease; M06.89 Other specified rheumatoid arthritis, multiple sites; F41.9 Anxiety disorder, unspecified; D63.1 Anemia in chronic kidney disease; I83.018 Varicose veins of right lower extremity with ulcer other part of lower leg; E66.01 Morbid (severe) obesity due to excess calories; I83.028 Varicose veins of left lower extremity with ulcer other part of lower leg; I45.19 Other right bundle-branch block; I25.5 Ischemic cardiomyopathy; B96.1 Klebsiella pneumoniae [K. pneumoniae] as the cause of diseases classified elsewhere; I25.2 Old myocardial infarction; Z95.5 Presence of coronary angioplasty implant and graft; Z95.810 Presence of automatic (implantable) cardiac defibrillator; Z79.4 Long term (current) use of insulin; Z98.890 Other specified postprocedural states; Z79.899 Other long term (current) drug therapy; Z79.01 Long term (current) use of anticoagulants; Z79.84 Long term (current) use of oral hypoglycemic drugs; Z79.82 Long term (current) use of aspirin
CPT/HCPCS: 36415; 36416; 36430; 51701; 71045; 71250; 80048; 80053; 80202; 81001; 82728; 83540; 83550; 83605; 83735; 84100; 84145; 85025; 85046; 85049; 85300; 85362; 85384; 85610; 85730; 86141; 86850; 86900; 86901; 87040; 87077; 87086; 87149; 87186; 87428; 87636; 88305; 88311; 93005; 93010; 93306; 96374; 96375; 97139; C1751; J0169; J0282; J0665; J0692; J1100; J1160; J1644; J1650; J1720; J1815; J1940; J2270; J2405; J2470; J2543; J2704; J3010; J3373; J3475; J3480; J7030; J7050; J7070; J7999; P9016; P9045